=== PATIENT | male | born 1940 | race Caucasian/White ===

== ENCOUNTER 2017-09-11 23:58 | Inpatient (IN) ==
[2017-09-12] MEDS ORDERED: ASPIRIN 325 MG TABLET PO STA (00:46)
[2017-09-12] MEDS ORDERED: NITROGLYCERIN 2% OINT 1 INCH/GM PACK TOP STA (00:46)
[2017-09-12 01:00] LABS: Basophils # 0.1 10*3/uL (0.0-0.2); Basophils % 0.7 % (0.0-0.8); Eosinophils # 0.2 10*3/uL (0.0-0.87); Eosinophils % 2.7 % (0.00-10.9); Hematocrit 43.7 VOL% (42.0-52.0); Hemoglobin 14.3 GM/DL (14.0-18.0); Immature Granulocytes % 0.6 %; Immature Granulocytes Absolute 0.05 #; Lymphocytes # 1.5 10*3/uL (1.4-4.0); Lymphocytes % 16.8 % (21.2-54.2); Mean Corpuscular HGB Conc 32.7 GM/DL (32-36); Mean Corpuscular Hemoglobin 30 PG (27-34); Mean Corpuscular Volume 92.2 FL (87-102); Mean Platelet Volume 9.4 FL (9.6-12.0); Monocytes % 11.2 % (1.7-12.7); Platelet Count 250 T/CUMM (130-400); Red Blood Count 4.74 MC/CUMM (3.8-5.5); Red Cell Distribution Width 13.2 % (9.3-17.3); White Blood Count 8.8 T/CUMM (4-12)
[2017-09-12] MEDS ORDERED: MORPHINE 2 MG/1 ML SYRINGE IV STA (01:02)
[2017-09-12] MEDS ORDERED: ONDANSETRON 4 MG/2 ML VIAL IV STA (01:02)
[2017-09-12] MEDS ORDERED: ASPIRIN 325 MG TABLET ONE (01:19)
[2017-09-12] MEDS ORDERED: ONDANSETRON 4 MG/2 ML VIAL ONE (01:19)
[2017-09-12] MEDS ORDERED: MORPHINE 2 MG/1 ML SYRINGE ONE (01:19)
[2017-09-12] MEDS ORDERED: NITROGLYCERIN 2% OINT 1 INCH/GM PACK TOP ONE (01:19)
[2017-09-12 01:27] LABS: Calcium 9.3 MG/DL (8.5-10.1); Potassium 4.6 MMOL/L (3.5-5.1)
[2017-09-12] MEDS ORDERED: MAGNESIUM SULF RIDER 4 GM in PREMIX 1 EACH IV PRN (02:19)
[2017-09-12] MEDS ORDERED: MAGNESIUM SULF RIDER 2 GM in PREMIX 1 EACH IV PRN (02:19)
[2017-09-12] MEDS ORDERED: MORPHINE 2 MG/1 ML SYRINGE IV PRN (02:19)
[2017-09-12] MEDS ORDERED: ONDANSETRON 4 MG/2 ML VIAL IV PRN (02:19)
[2017-09-12] MEDS ORDERED: ENOXAPARIN 100 MG/ML SYRINGE SUBCUT STA (02:21)
[2017-09-12] MEDS ORDERED: ENOXAPARIN 100 MG/ML SYRINGE SUBCUT ONE (02:37)
[2017-09-12] MEDS ORDERED: GLUCAGON 1 MG VIAL IM PRN ×2 (03:48→13:53)
[2017-09-12] MEDS ORDERED: DEXTROSE 50% 25 GM/50 ML VIAL IV PRN ×2 (03:48→13:53)
[2017-09-12] MEDS ORDERED: SODIUM BICARBONATE 50 MEQ/50 ML SYRINGE IV ONE ×2 (04:54→05:04)
[2017-09-12] MEDS ORDERED: SODIUM BICARB INJ 50 MEQ in SODIUM CHLORIDE 0.45% 1,000 ML IV SCH (04:56)
[2017-09-12] MEDS ORDERED: COLCHICINE 0.6 MG TABLET PO PRN (04:56)
[2017-09-12] MEDS ORDERED: diphenhydrAMINE CAP 25 MG CAPSULE PO ONE (04:56)
[2017-09-12] MEDS ORDERED: DIAZEPAM 5 MG TABLET PO ONE (04:56)
[2017-09-12] MEDS: INSULIN REGULAR 100 UNIT/ML SUBCUT SCH ×4 (09:01→21:02)
[2017-09-12] MEDS: PANTOPRAZOLE 40 MG TABLET PO SCH (09:12)
[2017-09-12] MEDS: ASPIRIN EC 81 MG TABLET PO SCH (09:13)
[2017-09-12] MEDS: hydroCHLOROthiazide 12.5 MG CAPSULE PO SCH (09:18)
[2017-09-12] MEDS: OLMESARTAN 20 MG TABLET PO SCH (09:18)
[2017-09-12] MEDS: OMEGA 3 ACID ETHYL ESTERS 1 GM CAPSULE PO SCH ×2 (09:19→21:02)
[2017-09-12] MEDS ORDERED: VERAPAMIL 5 MG/2 ML VIAL ONE (11:55)
[2017-09-12] MEDS ORDERED: LIDOCAINE 1% 20 ML VIAL ONE (11:55)
[2017-09-12] MEDS ORDERED: HEPARIN/NACL 0.9% 2 UNITS/ML 2,000 ML IV ONE (11:55)
[2017-09-12] MEDS ORDERED: NITROGLYCERIN DRIP 50 MG/250 ML BOTTLE IV ONE (11:55)
[2017-09-12] MEDS ORDERED: MIDAZOLAM 2 MG/2 ML VIAL ONE (11:56)
[2017-09-12] MEDS ORDERED: fentaNYL 100 MCG/2 ML VIAL ONE (11:57)
[2017-09-12] MEDS ORDERED: ENOXAPARIN 60 MG/0.6 ML SYRINGE ONE (12:05)
[2017-09-12] MEDS ORDERED: ZALEPLON 5 MG CAPSULE PO PRN (13:19)
[2017-09-12] MEDS ORDERED: BISACODYL 5 MG TABLET PO PRN (13:19)
[2017-09-12] MEDS ORDERED: ACETAMINOPHEN 325 MG TABLET PO PRN (13:19)
[2017-09-12] MEDS ORDERED: guaiFENesin/DM ER 600-30 MG TABLET PO PRN (13:19)
[2017-09-12] MEDS ORDERED: ENOXAPARIN 40 MG/0.4 ML SYRINGE SUBCUT ONE (13:42)
[2017-09-12] MEDS ORDERED: SODIUM CHLORIDE 0.9% 1,000 ML IV SCH (14:00)
[2017-09-12 15:31] LABS: ABG HCO3 25.3 MMOL/L (20-26); ABG Oxygen Saturation 98.5 % (95-100); ABG PCO2 49.5 MM HG (35-48); ABG TCO2 24.1 MMOL/L (23-27); Allen Test Positive
[2017-09-12] MEDS: CHLORHEXIDINE 4% SOLN 118 ML BOTTLE TOP SCH ×2 (16:00→22:46)
[2017-09-12] MEDS ORDERED: ATORVASTATIN 80 MG TABLET PO SCH (20:00)
[2017-09-12] MEDS ORDERED: METOPROLOL SUCCINATE XL 25 MG TABLET PO SCH (21:00)
[2017-09-12] MEDS: CHLORHEXIDINE 0.12% ORAL RINSE 60 ML BOTTLE SWISH/SPIT SCH (21:02)
[2017-09-13] MEDS: CHLORHEXIDINE 4% SOLN 118 ML BOTTLE TOP SCH (05:07)
[2017-09-13 05:11] LABS: Basophils % 0.6 % (0.0-0.8); Eosinophils # 0.2 10*3/uL (0.0-0.87); Eosinophils % 3.3 % (0.00-10.9); Hematocrit 39.2 VOL% (42.0-52.0); Hemoglobin 13.3 GM/DL (14.0-18.0); Immature Granulocytes % 0.6 %; Immature Granulocytes Absolute 0.04 #; Lymphocytes # 1.5 10*3/uL (1.4-4.0); Lymphocytes % 21.7 % (21.2-54.2); Mean Corpuscular HGB Conc 33.9 GM/DL (32-36); Mean Corpuscular Hemoglobin 31 PG (27-34); Mean Corpuscular Volume 91.4 FL (87-102); Mean Platelet Volume 10.3 FL (9.6-12.0); Monocytes # 0.9 10*3/uL (0.11-0.8); Monocytes % 13.1 % (1.7-12.7); Neutrophils # 4.2 10*3/uL (1.4-7.4); Neutrophils % 60.7 % (38.7-73.9); Platelet Count 227 T/CUMM (130-400); Red Blood Count 4.29 MC/CUMM (3.8-5.5); Red Cell Distribution Width 13.4 % (9.3-17.3); White Blood Count 6.9 T/CUMM (4-12)
[2017-09-13] MEDS ORDERED: PAPAVERINE 60 MG/2 ML VIAL ONE (05:19)
[2017-09-13] MEDS ORDERED: VANCOMYCIN 1,000 MG VIAL ONE (05:20)
[2017-09-13] MEDS ORDERED: FAMOTIDINE 20 MG TABLET PO ONE (05:30)
[2017-09-13] MEDS ORDERED: DIAZEPAM 5 MG TABLET PO ONE (05:30)
[2017-09-13] MEDS ORDERED: CALCIUM CHLORIDE 1,000 MG/10 ML VIAL IV ONE (05:33)
[2017-09-13] MEDS ORDERED: SUFentanil 250 MCG/5 ML AMP ONE (05:33)
[2017-09-13] MEDS ORDERED: MIDAZOLAM 10 MG/2 ML VIAL ONE ×2 (05:33)
[2017-09-13] MEDS ORDERED: ePHEDrine 50 MG/ML AMP ONE (05:34)
[2017-09-13] MEDS ORDERED: VECURONIUM 10 MG VIAL IV ONE (05:34)
[2017-09-13] MEDS ORDERED: TRANEXAMIC ACID 1,000 MG/10 ML VIAL IV ONE (05:46)
[2017-09-13 05:53] LABS: CKMB % 4.7 %
[2017-09-13 05:55] LABS: Troponin I Only 2.1 NG/ML (0.00-0.045)
[2017-09-13] MEDS ORDERED: CEFUROXIME INJ 1,500 MG in SYRINGE 1 EACH IV ONE (06:00)
[2017-09-13 06:08] LABS: Albumin 3.1 G/DL (3.4-5.0); Bilirubin,Total 0.6 MG/DL (0.2-1.0); Calcium 8.5 MG/DL (8.5-10.1); Magnesium 2.1 MG/DL (1.8-2.4); Osmolality,Calculated 285.1 MOS/KG (273-304); Potassium 4.7 MMOL/L (3.5-5.1); Total Protein 5.6 G/DL (6.4-8.3)
[2017-09-13 06:22] LABS: Risk Ratio 4.47; VLDL CHOLESTEROL 23.6 MG/DL
[2017-09-13 07:34] LABS: ABG Base Excess 1.5 MMOL/L (-2.5-2.5); ABG HCO3 25.8 MMOL/L (20-26); ABG PCO2 40.4 MM HG (35-48); ABG PH 7.418 (7.35-7.45); ABG TCO2 22.7 MMOL/L (23-27); Glucose Heart Surgery 100 MG/DL (74-106); Hematocrit Heart Surgery 40.9 PERCENT (42-52); Hemoglobin Heart Surgery 13.3 G/DL (14.0-18.0); Ionized Calcium Arterial 1.17 MMOL/L (1.21-1.46); PCO2 Patient Temp Arterial 40.4 MMHG; PH Patient Temp Arterial 7.418; Patient Temperature 37 CELCIUS; Potassium Heart/CVR 4.3 MMOL/L (3.5-5.1); Sodium Heart/CVR 140 MMOL/L (135-145)
[2017-09-13 07:55] LABS: Apearance,Urine CLEAR (Clear); Bilirubin,Urine Negative (Negative); Blood, Urine Negative (Negative); Glucose,Urine (UA) Negative (Negative); Ketones,Urine Negative (Negative); Mucus,Urine Occasional /LPF (Occasional); Nitrite,Urine Negative (Negative); Protein,Urine Negative; RBC,Urine <1 /HPF (0-4); Urine Color Straw (Yellow); Urine Specific Gravity 1.011 (1.001-1.035); Urine Urobilinogen < 2.0 EU/DL (0.2-1.0); WBC,Urine 1 /HPF (0-6)
[2017-09-13] MEDS ORDERED: PHENYLEPHRINE DRIP 40 MG/250 ML PREMIX IV ONE (08:28)
[2017-09-13] MEDS ORDERED: NITROPRUSSIDE 50 MG/2 ML VIAL ONE (08:28)
[2017-09-13] MEDS ORDERED: ALBUMIN 5% 12.5 GM/250 ML VIAL IV ONE (08:29)
[2017-09-13] MEDS ORDERED: CALCIUM CHLORIDE 1,000 MG/10 ML SYRINGE IV ONE (08:29)
[2017-09-13] MEDS ORDERED: POTASSIUM CHLORIDE RIDER 100 ML IV ONE (08:29)
[2017-09-13 09:51] LABS: Hematocrit Heart Surgery 24.7 PERCENT (42-52); Hemoglobin Heart Surgery 7.9 G/DL (14.0-18.0); PCO2 Patient Temp Venous 30.4 MM HG; PH Patient Temp Venous 7.512; PO2 Patient Temp Venous 41.5 MM HG; Potassium Heart/CVR 4.9 MMOL/L (3.5-5.1); VBG Base Excess 1.8 MEQ/L (0-4); VBG HCO3 25.9 MEQ/L (24-28); VBG Oxygen Saturation 89.3 %; VBG PCO2 35.1 MMHG (41-51); VBG PH 7.466; VBG PO2 50.9 MMHG (17-40)
[2017-09-13 10:21] LABS: Hematocrit Heart Surgery 27.9 PERCENT (42-52); PH Patient Temp Venous 7.507; PO2 Patient Temp Venous 40.2 MM HG; Potassium Heart/CVR 4.4 MMOL/L (3.5-5.1); VBG Base Excess 1.9 MEQ/L (0-4); VBG Oxygen Saturation 87.6 %; VBG PCO2 35.8 MMHG (41-51); VBG PH 7.462; VBG PO2 49.4 MMHG (17-40)
[2017-09-13 10:51] LABS: PCO2 Patient Temp Venous 33.9 MM HG; PH Patient Temp Venous 7.486; PO2 Patient Temp Venous 39.6 MM HG; Potassium Heart/CVR 4.5 MMOL/L (3.5-5.1); VBG Base Excess 2.4 MEQ/L (0-4); VBG HCO3 26.3 MEQ/L (24-28); VBG PCO2 35.5 MMHG (41-51); VBG PH 7.471; VBG PO2 42.4 MMHG (17-40)
[2017-09-13] MEDS ORDERED: THROMBIN TOPICAL (RECOMBINANT) 5,000 UNIT VIAL TOP ONE (11:21)
[2017-09-13 11:32] LABS: ABG Base Excess 1.8 MMOL/L (-2.5-2.5); ABG HCO3 26.1 MMOL/L (20-26); ABG PCO2 33.8 MM HG (35-48); ABG PH 7.478 (7.35-7.45); ABG TCO2 22.8 MMOL/L (23-27); Glucose Heart Surgery 168 MG/DL (74-106); Hematocrit Heart Surgery 29.8 PERCENT (42-52); Hemoglobin Heart Surgery 9.6 G/DL (14.0-18.0); Ionized Calcium Arterial 1.32 MMOL/L (1.21-1.46); PCO2 Patient Temp Arterial 33.8 MMHG; PH Patient Temp Arterial 7.478; Patient Temperature 37 CELCIUS; Potassium Heart/CVR 3.8 MMOL/L (3.5-5.1); Sodium Heart/CVR 135 MMOL/L (135-145)
[2017-09-13] MEDS ORDERED: ALBUMIN 25% 25 GM/100 ML VIAL IV ONE (11:33)
[2017-09-13] MEDS ORDERED: SODIUM BICARBONATE 50 MEQ/50 ML SYRINGE IV ONE (11:33)
[2017-09-13] MEDS ORDERED: methylPREDNISolone SOD SUC 1,000 MG/8 ML VIAL ONE (11:33)
[2017-09-13] MEDS ORDERED: PROTAMINE SULFATE 250 MG/25 ML VIAL IV ONE (11:33)
[2017-09-13] MEDS ORDERED: MAGNESIUM SULFATE 1 GM/2 ML VIAL ONE (11:33)
[2017-09-13] MEDS ORDERED: DEXTROSE 5% KCL 20 MEQ 20 MEQ/1,000 ML BAG IV ONE (11:33)
[2017-09-13] MEDS ORDERED: MANNITOL 12.5 GM/50 ML VIAL IV ONE (11:33)
[2017-09-13] MEDS ORDERED: HEPARIN 10,000 UNIT/10 ML VIAL ONE (11:33)
[2017-09-13] MEDS ORDERED: FUROSEMIDE 20 MG/2 ML VIAL ONE (11:34)
[2017-09-13] MEDS ORDERED: PHENYLEPHRINE 10 MG/1 ML VIAL IV ONE ×2 (11:35→12:56)
[2017-09-13] MEDS ORDERED: VECURONIUM 10 MG VIAL IV PRN ×2 (12:45)
[2017-09-13] MEDS ORDERED: MORPHINE 10 MG/1 ML VIAL IV PRN (12:45)
[2017-09-13] MEDS ORDERED: MIDAZOLAM 2 MG/2 ML VIAL IV PRN (12:45)
[2017-09-13] MEDS ORDERED: CALCIUM CHLORIDE 1,000 MG/10 ML SYRINGE IV PRN (12:45)
[2017-09-13] MEDS ORDERED: MAGNESIUM SULF RIDER 2 GM in PREMIX 1 EACH IV PRN (12:45)
[2017-09-13] MEDS ORDERED: MIDAZOLAM 10 MG/2 ML VIAL IV PRN (12:45)
[2017-09-13] MEDS ORDERED: INSULIN REGULAR 100 UNIT/ML IV PRN (12:45)
[2017-09-13] MEDS ORDERED: LACTATED RINGERS 250 ML IV PRN (12:45)
[2017-09-13] MEDS ORDERED: POTASSIUM CHLORIDE RIDER 10 MEQ in PREMIX 1 EACH IV PRN (12:45)
[2017-09-13] MEDS ORDERED: ONDANSETRON 4 MG/2 ML VIAL IV PRN (12:45)
[2017-09-13] MEDS ORDERED: MORPHINE 2 MG/1 ML SYRINGE IV PRN (12:45)
[2017-09-13] MEDS ORDERED: PHENYLEPHRINE DRIP 40 MG/250 ML PREMIX IV PRN (12:45)
[2017-09-13] MEDS ORDERED: NITROPRUSSIDE 100 MG in DEXTROSE 5% 250 ML IV PRN (12:45)
[2017-09-13] MEDS ORDERED: ACETAMINOPHEN 650 MG SUPP RECTAL PRN (12:45)
[2017-09-13] MEDS ORDERED: MAGNESIUM SULF RIDER 4 GM in PREMIX 1 EACH IV PRN (12:45)
[2017-09-13] MEDS ORDERED: INSULIN REGULAR 100 UNIT/ML IV ONE (12:45)
[2017-09-13] MEDS ORDERED: DEXTROSE 50% 25 GM/50 ML VIAL IV PRN ×2 (12:45)
[2017-09-13 12:55] LABS: ABG Base Excess 1.7 MMOL/L (-2.5-2.5); ABG HCO3 25.9 MMOL/L (20-26); ABG Oxygen Saturation 97.5 % (95-100); ABG PCO2 35.6 MM HG (35-48); ABG PH 7.458 (7.35-7.45); ABG PO2 86.5 MM HG (80-95); ABG TCO2 22.3 MMOL/L (23-27); Glucose Heart Surgery 140 MG/DL (74-106); Hematocrit Heart Surgery 36.3 PERCENT (42-52); Hemoglobin Heart Surgery 11.8 G/DL (14.0-18.0); Potassium Heart/CVR 3.6 MMOL/L (3.5-5.1)
[2017-09-13] MEDS ORDERED: SODIUM CHLORIDE 0.9% 1,000 ML IV ONE (12:55)
[2017-09-13] MEDS ORDERED: NITROGLYCERIN DRIP 50 MG/250 ML BOTTLE IV ONE ×2 (12:55→13:51)
[2017-09-13] MEDS ORDERED: SODIUM CHLORIDE 0.9% 250 ML IV ONE (12:55)
[2017-09-13 12:58] LABS: Basophils # 0.1 10*3/uL (0.0-0.2); Basophils % 0.5 % (0.0-0.8); Eosinophils # 0.1 10*3/uL (0.0-0.87); Eosinophils % 0.9 % (0.00-10.9); Hematocrit 32.7 VOL% (42.0-52.0); Hemoglobin 11.1 GM/DL (14.0-18.0); Immature Granulocytes % 0.6 %; Immature Granulocytes Absolute 0.06 #; Lymphocytes # 0.9 10*3/uL (1.4-4.0); Lymphocytes % 9.5 % (21.2-54.2); Mean Corpuscular HGB Conc 33.9 GM/DL (32-36); Mean Corpuscular Hemoglobin 31 PG (27-34); Mean Corpuscular Volume 90.6 FL (87-102); Mean Platelet Volume 9.5 FL (9.6-12.0); Monocytes # 0.6 10*3/uL (0.11-0.8); Monocytes % 6.2 % (1.7-12.7); Neutrophils # 8.1 10*3/uL (1.4-7.4); Neutrophils % 82.3 % (38.7-73.9); Platelet Count 153 T/CUMM (130-400); Red Blood Count 3.61 MC/CUMM (3.8-5.5); Red Cell Distribution Width 12.9 % (9.3-17.3); White Blood Count 9.9 T/CUMM (4-12)
[2017-09-13] MEDS ORDERED: INSULIN REGULAR DRIP 100 ML IV SCH (13:00)
[2017-09-13] MEDS ORDERED: SODIUM CHLORIDE 0.45% 1,000 ML IV SCH ×2 (13:00)
[2017-09-13] MEDS: LACTATED RINGERS 1,000 ML IV PRN ×3 (13:00→17:20)
[2017-09-13 13:06] LABS: INR 1.1; PT Patient Result 11.9 SECS; Partial Thromboplastin Time 27.7 SECS (0-40)
[2017-09-13 13:22] LABS: Bilirubin,Total 1.1 MG/DL (0.2-1.0); Calcium 9.6 MG/DL (8.5-10.1); Magnesium 2.2 MG/DL (1.8-2.4); Osmolality,Calculated 287.1 MOS/KG (273-304); Potassium 3.7 MMOL/L (3.5-5.1); Total Protein 5.2 G/DL (6.4-8.3)
[2017-09-13 13:27] LABS: Hypochromasia 2+
[2017-09-13] MEDS: POTASSIUM CHLORIDE RIDER 20 MEQ in PREMIX 1 EACH IV PRN ×3 (13:36→21:57)
[2017-09-13 13:38] LABS: CKMB % 8.4 %
[2017-09-13 13:40] LABS: Troponin I Only 6.76 NG/ML (0.00-0.045)
[2017-09-13] MEDS ORDERED: NITROGLYCERIN DRIP 50 MG/250 ML BOTTLE IV SCH (14:20)
[2017-09-13 15:19] LABS: ABG Base Excess -0.4 MMOL/L (-2.5-2.5); ABG HCO3 21.2 MMOL/L (20-26); ABG Oxygen Saturation 98.6 % (95-100); ABG PCO2 26.1 MM HG (35-48); ABG PH 7.527 (7.35-7.45); ABG PO2 203.3 MM HG (80-95); Glucose Heart Surgery 149 MG/DL (74-106); Hemoglobin Heart Surgery 12.2 G/DL (14.0-18.0)
[2017-09-13] MEDS: ALBUMIN 5% 12.5 GM in PREMIX 1 EACH IV PRN ×5 (15:33→22:19)
[2017-09-13] MEDS: KETOROLAC 30 MG/1 ML VIAL IV SCH ×2 (15:35→21:19)
[2017-09-13 16:53] LABS: ABG Base Excess -1.7 MMOL/L (-2.5-2.5); ABG HCO3 20.6 MMOL/L (20-26); ABG Oxygen Saturation 96.3 % (95-100); ABG PCO2 27.3 MM HG (35-48); ABG PH 7.496 (7.35-7.45); ABG PO2 87.9 MM HG (80-95); ABG TCO2 21.5 MMOL/L (23-27); Glucose Heart Surgery 160 MG/DL (74-106); Hemoglobin Heart Surgery 10.4 G/DL (14.0-18.0); Potassium Heart/CVR 3.8 MMOL/L (3.5-5.1)
[2017-09-13 19:12] LABS: ABG Base Excess -2.6 MMOL/L (-2.5-2.5); ABG HCO3 21.2 MMOL/L (20-26); ABG Oxygen Saturation 97.2 % (95-100); ABG PCO2 32.9 MM HG (35-48); ABG PH 7.427 (7.35-7.45); ABG PO2 106.2 MM HG (80-95); ABG TCO2 22.2 MMOL/L (23-27); Glucose Heart Surgery 153 MG/DL (74-106); Hemoglobin Heart Surgery 10.4 G/DL (14.0-18.0); Potassium Heart/CVR 3.8 MMOL/L (3.5-5.1)
[2017-09-13] MEDS ORDERED: FUROSEMIDE 40 MG/4 ML VIAL IV ONE (19:50)
[2017-09-13] MEDS ORDERED: CEFUROXIME INJ 1,500 MG in SYRINGE 1 EACH IV SCH (20:35)
[2017-09-13 20:49] LABS: CKMB % 7.2 %
[2017-09-13 20:51] LABS: Troponin I Only 10.5 NG/ML (0.00-0.045)
[2017-09-13] MEDS ORDERED: CHLORHEXIDINE 0.12% ORAL RINSE 60 ML BOTTLE SWISH/SPIT SCH (21:00)
[2017-09-13 23:58] LABS: ABG Base Excess -1.6 MMOL/L (-2.5-2.5); ABG HCO3 23.1 MMOL/L (20-26); ABG Oxygen Saturation 98.1 % (95-100); ABG PCO2 35.7 MM HG (35-48); ABG PH 7.411 (7.35-7.45); ABG PO2 96.1 MM HG (80-95); Glucose Heart Surgery 113 MG/DL (74-106); Hematocrit Heart Surgery 27.1 PERCENT (42-52); Hemoglobin Heart Surgery 8.7 G/DL (14.0-18.0); Potassium Heart/CVR 4.1 MMOL/L (3.5-5.1)
[2017-09-14] MEDS: POTASSIUM CHLORIDE RIDER 20 MEQ in PREMIX 1 EACH IV PRN ×2 (00:43→06:48)
[2017-09-14 03:05] LABS: Basophils % 0.1 % (0.0-0.8); Hematocrit 28.8 VOL% (42.0-52.0); Hemoglobin 9.8 GM/DL (14.0-18.0); Immature Granulocytes % 0.3 %; Immature Granulocytes Absolute 0.04 #; Lymphocytes # 0.6 10*3/uL (1.4-4.0); Lymphocytes % 5.1 % (21.2-54.2); Mean Corpuscular Hemoglobin 30 PG (27-34); Mean Corpuscular Volume 89.4 FL (87-102); Mean Platelet Volume 9.7 FL (9.6-12.0); Monocytes # 0.5 10*3/uL (0.11-0.8); Monocytes % 4.6 % (1.7-12.7); Neutrophils # 10.7 10*3/uL (1.4-7.4); Neutrophils % 89.9 % (38.7-73.9); Platelet Count 138 T/CUMM (130-400); Red Blood Count 3.22 MC/CUMM (3.8-5.5); Red Cell Distribution Width 13.2 % (9.3-17.3); White Blood Count 11.9 T/CUMM (4-12)
[2017-09-14 03:09] LABS: ABG Base Excess -1.4 MMOL/L (-2.5-2.5); ABG HCO3 23.2 MMOL/L (20-26); ABG Oxygen Saturation 95.9 % (95-100); ABG PCO2 37.5 MM HG (35-48); ABG PH 7.398 (7.35-7.45); ABG PO2 77.1 MM HG (80-95); Glucose Heart Surgery 141 MG/DL (74-106); Potassium Heart/CVR 4.4 MMOL/L (3.5-5.1)
[2017-09-14] MEDS: KETOROLAC 30 MG/1 ML VIAL IV SCH (03:22)
[2017-09-14 03:27] LABS: Band Neutrophils 9 % (0-10); Lymphocytes 3 % (20-55); Metamyelocytes 1 %; Segmented Neutrophils 86 % (50-85); Total Cells Counted 100
[2017-09-14 03:29] LABS: Platelet Estimate Normal
[2017-09-14 03:30] LABS: Hypochromasia Slight
[2017-09-14] MEDS ORDERED: FUROSEMIDE 40 MG/4 ML VIAL IV ONE ×2 (03:30→23:30)
[2017-09-14 03:48] LABS: Albumin 3.6 G/DL (3.4-5.0); Bilirubin,Direct 0.26 MG/DL (0.0-0.20); Bilirubin,Total 0.8 MG/DL (0.2-1.0); Calcium 8.8 MG/DL (8.5-10.1); Magnesium 1.8 MG/DL (1.8-2.4); Osmolality,Calculated 288.1 MOS/KG (273-304); Potassium 4.4 MMOL/L (3.5-5.1); Total Protein 5.4 G/DL (6.4-8.3)
[2017-09-14 04:34] LABS: CKMB % 7.5 %
[2017-09-14 04:38] LABS: Troponin I Only 14.5 NG/ML (0.00-0.045)
[2017-09-14 05:54] LABS: ABG HCO3 22.7 MMOL/L (20-26); ABG Oxygen Saturation 95.9 % (95-100); ABG PCO2 46.2 MM HG (35-48); ABG PH 7.327 (7.35-7.45); ABG PO2 83.5 MM HG (80-95); ABG TCO2 22.1 MMOL/L (23-27); Glucose Heart Surgery 137 MG/DL (74-106); Hematocrit Heart Surgery 31.4 PERCENT (42-52); Hemoglobin Heart Surgery 10.2 G/DL (14.0-18.0); Potassium Heart/CVR 4.2 MMOL/L (3.5-5.1)
[2017-09-14] MEDS ORDERED: COLCHICINE 0.6 MG TABLET PO PRN (06:18)
[2017-09-14 07:09] LABS: ABG Base Excess -2.8 MMOL/L (-2.5-2.5); ABG HCO3 22.4 MMOL/L (20-26); ABG Oxygen Saturation 95.8 % (95-100); ABG PCO2 40.2 MM HG (35-48); ABG PH 7.363 (7.35-7.45); ABG PO2 92.5 MM HG (80-95); ABG TCO2 23.6 MMOL/L (23-27); Glucose Heart Surgery 111 MG/DL (74-106); Hemoglobin Heart Surgery 10.9 G/DL (14.0-18.0); Potassium Heart/CVR 4.7 MMOL/L (3.5-5.1)
[2017-09-14] MEDS ORDERED: MAGNESIUM SULF RIDER 4 GM in PREMIX 1 EACH IV PRN (07:28)
[2017-09-14] MEDS ORDERED: ZALEPLON 5 MG CAPSULE PO PRN (07:28)
[2017-09-14] MEDS ORDERED: GLUCAGON 1 MG VIAL IM PRN ×2 (07:28)
[2017-09-14] MEDS ORDERED: SODIUM CHLOR 0.45% KCL 20 MEQ 20 MEQ/1,000 ML BAG IV SCH (07:28)
[2017-09-14] MEDS ORDERED: DEXTROSE 50% 25 GM/50 ML VIAL IV PRN ×2 (07:28)
[2017-09-14] MEDS ORDERED: MAGNESIUM SULF RIDER 2 GM in PREMIX 1 EACH IV PRN (07:28)
[2017-09-14] MEDS ORDERED: POTASSIUM CHLORIDE 20 MEQ TABLET PO PRN (07:28)
[2017-09-14] MEDS ORDERED: ONDANSETRON 4 MG/2 ML VIAL IV PRN (07:28)
[2017-09-14] MEDS ORDERED: MORPHINE 2 MG/1 ML SYRINGE IV PRN (07:28)
[2017-09-14] MEDS ORDERED: ACETAMINOPHEN 325 MG TABLET PO PRN (07:28)
[2017-09-14] MEDS ORDERED: ALUMINUM/MAGNES/SIMETH MAX STR 30 ML UDCUP PO PRN (07:28)
[2017-09-14] MEDS ORDERED: oxyCODONE/ACETAMINOPHEN 5-325 MG TABLET PO PRN (07:28)
[2017-09-14] MEDS: INSULIN REGULAR 100 UNIT/ML SUBCUT SCH ×3 (07:55→21:39)
[2017-09-14] MEDS: OLMESARTAN 20 MG TABLET PO SCH (07:56)
[2017-09-14] MEDS: OMEGA 3 ACID ETHYL ESTERS 1 GM CAPSULE PO SCH ×3 (07:56→21:39)
[2017-09-14] MEDS: hydroCHLOROthiazide 12.5 MG CAPSULE PO SCH ×2 (07:56→09:30)
[2017-09-14] MEDS: CHLORHEXIDINE 0.12% ORAL RINSE 60 ML BOTTLE SWISH/SPIT SCH ×3 (07:56→21:40)
[2017-09-14] MEDS: CHLORHEXIDINE 4% SOLN 118 ML BOTTLE TOP SCH (07:56)
[2017-09-14] MEDS: ASPIRIN EC 81 MG TABLET PO SCH (07:56)
[2017-09-14] MEDS: PANTOPRAZOLE 40 MG TABLET PO SCH ×2 (07:56→09:31)
[2017-09-14] MEDS ORDERED: OLMESARTAN 20 MG TABLET PO SCH (09:00)
[2017-09-14] MEDS: FERROUS SULFATE 325 MG TABLET PO SCH (09:30)
[2017-09-14] MEDS: DOCUSATE SODIUM 100 MG CAPSULE PO SCH (09:31)
[2017-09-14] MEDS: ASPIRIN EC 325 MG TABLET PO SCH (09:31)
[2017-09-14] MEDS: CEFUROXIME INJ 1,500 MG in SYRINGE 1 EACH IV SCH ×2 (10:27→21:40)
[2017-09-14] MEDS ORDERED: AMIODARONE INJ 150 MG in DEXTROSE 5% 100 ML IV ONE (12:23)
[2017-09-14] MEDS ORDERED: AMIODARONE 150 MG/3 ML VIAL ONE (12:28)
[2017-09-14] MEDS ORDERED: DILTIAZEM 50 MG/10 ML VIAL IV ONE (12:29)
[2017-09-14] MEDS: DILTIAZEM INJ 100 MG in SODIUM CHLORIDE 0.9% 100 ML IV SCH (12:30)
[2017-09-14] MEDS ORDERED: AMIODARONE INJ 450 MG in DEXTROSE 5% 241 ML IV SCH (12:30)
[2017-09-14] MEDS ORDERED: DILTIAZEM 100 MG VIAL.ADD IV ONE (12:32)
[2017-09-14] MEDS ORDERED: SODIUM CHLORIDE 0.9% 100 ML IV ONE (12:32)
[2017-09-14 13:29] LABS: CKMB % 6.8 %; Troponin I Only 11.3 NG/ML (0.00-0.045)
[2017-09-14] MEDS ORDERED: METOPROLOL TARTRATE 5 MG/5 ML VIAL IV ONE (16:15)
[2017-09-14] MEDS: METOPROLOL TARTRATE 25 MG TABLET PO SCH ×2 (16:39→21:39)
[2017-09-14] MEDS ORDERED: METOPROLOL SUCCINATE XL 25 MG TABLET PO SCH (21:00)
[2017-09-14] MEDS: AMIODARONE INJ 450 MG in DEXTROSE 5% 241 ML IV SCH (21:38)
[2017-09-14] MEDS: ATORVASTATIN 40 MG TABLET PO SCH (21:39)
[2017-09-15] MEDS ORDERED: FUROSEMIDE INJ 100 MG in SODIUM CHLORIDE 0.9% 90 ML IV SCH
[2017-09-15] MEDS: INSULIN REGULAR 100 UNIT/ML SUBCUT SCH ×6 (00:26→21:54)
[2017-09-15 04:34] LABS: Basophils % 0.1 % (0.0-0.8); Eosinophils % 0.1 % (0.00-10.9); Hematocrit 32.2 VOL% (42.0-52.0); Hemoglobin 10.6 GM/DL (14.0-18.0); Immature Granulocytes % 0.9 %; Immature Granulocytes Absolute 0.16 #; Lymphocytes # 1.6 10*3/uL (1.4-4.0); Lymphocytes % 8.6 % (21.2-54.2); Mean Corpuscular HGB Conc 32.9 GM/DL (32-36); Mean Corpuscular Hemoglobin 30 PG (27-34); Mean Corpuscular Volume 91.2 FL (87-102); Mean Platelet Volume 9.8 FL (9.6-12.0); Monocytes # 2.2 10*3/uL (0.11-0.8); Monocytes % 11.5 % (1.7-12.7); Neutrophils # 14.8 10*3/uL (1.4-7.4); Neutrophils % 78.8 % (38.7-73.9); Platelet Count 158 T/CUMM (130-400); Red Blood Count 3.53 MC/CUMM (3.8-5.5); Red Cell Distribution Width 14.4 % (9.3-17.3); White Blood Count 18.7 T/CUMM (4-12)
[2017-09-15] MEDS: DILTIAZEM INJ 100 MG in SODIUM CHLORIDE 0.9% 100 ML IV SCH ×2 (04:56→16:19)
[2017-09-15 05:06] LABS: Albumin 3.5 G/DL (3.4-5.0); Bilirubin,Direct 0.13 MG/DL (0.0-0.20); Bilirubin,Indirect 0.5 MG/DL (0.0-1.0); Bilirubin,Total 0.6 MG/DL (0.2-1.0); CKMB % 5.2 %; Calcium 8.6 MG/DL (8.5-10.1); Magnesium 1.9 MG/DL (1.8-2.4); Osmolality,Calculated 290.5 MOS/KG (273-304); Total Protein 5.9 G/DL (6.4-8.3)
[2017-09-15 05:09] LABS: Troponin I Only 14.3 NG/ML (0.00-0.045)
[2017-09-15] MEDS ORDERED: FUROSEMIDE 40 MG/4 ML VIAL IV ONE (06:00)
[2017-09-15] MEDS: PANTOPRAZOLE 40 MG TABLET PO SCH (10:25)
[2017-09-15] MEDS: METOPROLOL TARTRATE 25 MG TABLET PO SCH ×2 (10:25→14:26)
[2017-09-15] MEDS: OMEGA 3 ACID ETHYL ESTERS 1 GM CAPSULE PO SCH ×2 (10:25→21:10)
[2017-09-15] MEDS: hydroCHLOROthiazide 12.5 MG CAPSULE PO SCH (10:25)
[2017-09-15] MEDS: DOCUSATE SODIUM 100 MG CAPSULE PO SCH (10:26)
[2017-09-15] MEDS: ASPIRIN EC 325 MG TABLET PO SCH (10:26)
[2017-09-15] MEDS: FERROUS SULFATE 325 MG TABLET PO SCH (10:26)
[2017-09-15] MEDS: CHLORHEXIDINE 0.12% ORAL RINSE 60 ML BOTTLE SWISH/SPIT SCH ×2 (10:32→21:10)
[2017-09-15] MEDS: MAGNESIUM HYDROXIDE SUSP 30 ML UDCUP PO PRN (12:20)
[2017-09-15] MEDS: AMIODARONE INJ 450 MG in DEXTROSE 5% 241 ML IV SCH (12:46)
[2017-09-15] MEDS: METOPROLOL TARTRATE 50 MG TABLET PO SCH ×2 (17:10→21:10)
[2017-09-16] MEDS: AMIODARONE INJ 450 MG in DEXTROSE 5% 241 ML IV SCH ×2 (03:37→18:47)
[2017-09-16 06:51] LABS: Basophils % 0.1 % (0.0-0.8); Eosinophils # 0.1 10*3/uL (0.0-0.87); Eosinophils % 0.9 % (0.00-10.9); Hematocrit 29.6 VOL% (42.0-52.0); Hemoglobin 10.2 GM/DL (14.0-18.0); Immature Granulocytes % 0.7 %; Immature Granulocytes Absolute 0.09 #; Lymphocytes # 1.6 10*3/uL (1.4-4.0); Lymphocytes % 12.1 % (21.2-54.2); Mean Corpuscular HGB Conc 34.5 GM/DL (32-36); Mean Corpuscular Hemoglobin 31 PG (27-34); Mean Corpuscular Volume 88.6 FL (87-102); Mean Platelet Volume 10.9 FL (9.6-12.0); Monocytes # 1.5 10*3/uL (0.11-0.8); Monocytes % 11.3 % (1.7-12.7); Neutrophils # 10.2 10*3/uL (1.4-7.4); Neutrophils % 74.9 % (38.7-73.9); Platelet Count 157 T/CUMM (130-400); Red Blood Count 3.34 MC/CUMM (3.8-5.5); Red Cell Distribution Width 14.3 % (9.3-17.3); White Blood Count 13.6 T/CUMM (4-12)
[2017-09-16 07:16] LABS: Calcium 8.3 MG/DL (8.5-10.1); Magnesium 2.1 MG/DL (1.8-2.4); Osmolality,Calculated 290.5 MOS/KG (273-304)
[2017-09-16 07:22] LABS: Albumin 3.1 G/DL (3.4-5.0); Bilirubin,Direct 0.17 MG/DL (0.0-0.20); Bilirubin,Indirect 0.7 MG/DL (0.0-1.0); Bilirubin,Total 0.9 MG/DL (0.2-1.0); CKMB % 2.1 %; Calcium 8.3 MG/DL (8.5-10.1); Magnesium 2.1 MG/DL (1.8-2.4); Osmolality,Calculated 292.4 MOS/KG (273-304); Total Protein 5.5 G/DL (6.4-8.3)
[2017-09-16 07:23] LABS: Troponin I Only 8.03 NG/ML (0.00-0.045)
[2017-09-16] MEDS: hydroCHLOROthiazide 12.5 MG CAPSULE PO SCH (10:06)
[2017-09-16] MEDS: OMEGA 3 ACID ETHYL ESTERS 1 GM CAPSULE PO SCH ×2 (10:06→21:31)
[2017-09-16] MEDS: PANTOPRAZOLE 40 MG TABLET PO SCH (10:06)
[2017-09-16] MEDS: CHLORHEXIDINE 0.12% ORAL RINSE 60 ML BOTTLE SWISH/SPIT SCH ×2 (10:07→21:31)
[2017-09-16] MEDS: DOCUSATE SODIUM 100 MG CAPSULE PO SCH (10:07)
[2017-09-16] MEDS: FERROUS SULFATE 325 MG TABLET PO SCH (10:07)
[2017-09-16] MEDS: INSULIN REGULAR 100 UNIT/ML SUBCUT SCH ×4 (10:07→21:31)
[2017-09-16] MEDS: ASPIRIN EC 325 MG TABLET PO SCH (10:07)
[2017-09-16] MEDS: METOPROLOL TARTRATE 50 MG TABLET PO SCH ×4 (10:07→21:31)
[2017-09-16] MEDS: DILTIAZEM INJ 100 MG in SODIUM CHLORIDE 0.9% 100 ML IV SCH (13:41)
[2017-09-16] MEDS: AMIODARONE 200 MG TABLET PO SCH (21:31)
[2017-09-16] MEDS: ATORVASTATIN 40 MG TABLET PO SCH (21:31)
[2017-09-17] MEDS: AMIODARONE 200 MG TABLET PO SCH ×2 (09:48→21:07)
[2017-09-17] MEDS: hydroCHLOROthiazide 12.5 MG CAPSULE PO SCH (09:48)
[2017-09-17] MEDS: INSULIN REGULAR 100 UNIT/ML SUBCUT SCH ×4 (09:48→23:05)
[2017-09-17] MEDS: OMEGA 3 ACID ETHYL ESTERS 1 GM CAPSULE PO SCH ×2 (09:49→21:07)
[2017-09-17] MEDS: METOPROLOL TARTRATE 50 MG TABLET PO SCH ×4 (09:49→21:07)
[2017-09-17] MEDS: DOCUSATE SODIUM 100 MG CAPSULE PO SCH (09:49)
[2017-09-17] MEDS: FERROUS SULFATE 325 MG TABLET PO SCH (09:49)
[2017-09-17] MEDS: PANTOPRAZOLE 40 MG TABLET PO SCH (09:49)
[2017-09-17] MEDS: ASPIRIN EC 325 MG TABLET PO SCH (09:49)
[2017-09-17] MEDS: CHLORHEXIDINE 0.12% ORAL RINSE 60 ML BOTTLE SWISH/SPIT SCH ×2 (09:50→21:07)
[2017-09-17] MEDS: AMIODARONE INJ 450 MG in DEXTROSE 5% 241 ML IV SCH (12:39)
[2017-09-17] MEDS: DILTIAZEM INJ 100 MG in SODIUM CHLORIDE 0.9% 100 ML IV SCH (12:40)
[2017-09-17] MEDS: MAGNESIUM HYDROXIDE SUSP 30 ML UDCUP PO PRN (13:41)
[2017-09-18 05:35] LABS: Basophils % 0.3 % (0.0-0.8); Eosinophils # 0.3 10*3/uL (0.0-0.87); Eosinophils % 3.4 % (0.00-10.9); Hematocrit 31.5 VOL% (42.0-52.0); Hemoglobin 10.8 GM/DL (14.0-18.0); Immature Granulocytes % 0.5 %; Immature Granulocytes Absolute 0.05 #; Lymphocytes # 1.5 10*3/uL (1.4-4.0); Mean Corpuscular HGB Conc 34.3 GM/DL (32-36); Mean Corpuscular Hemoglobin 30 PG (27-34); Mean Corpuscular Volume 88.7 FL (87-102); Mean Platelet Volume 10.5 FL (9.6-12.0); Monocytes # 1.5 10*3/uL (0.11-0.8); Monocytes % 15.4 % (1.7-12.7); Neutrophils # 6.4 10*3/uL (1.4-7.4); Neutrophils % 65.4 % (38.7-73.9); Platelet Count 197 T/CUMM (130-400); Red Blood Count 3.55 MC/CUMM (3.8-5.5); Red Cell Distribution Width 13.4 % (9.3-17.3); White Blood Count 9.8 T/CUMM (4-12)
[2017-09-18 06:07] LABS: Albumin 2.7 G/DL (3.4-5.0); Bilirubin,Direct 0.18 MG/DL (0.0-0.20); Bilirubin,Indirect 0.8 MG/DL (0.0-1.0); CKMB % 6.5 %; Calcium 8.5 MG/DL (8.5-10.1); Magnesium 2.4 MG/DL (1.8-2.4); Osmolality,Calculated 287.3 MOS/KG (273-304); Potassium 4.2 MMOL/L (3.5-5.1); Total Protein 5.5 G/DL (6.4-8.3)
[2017-09-18 06:15] LABS: Troponin I Only 10.5 NG/ML (0.00-0.045)
[2017-09-18] MEDS: ASPIRIN EC 325 MG TABLET PO SCH (09:03)
[2017-09-18] MEDS: FERROUS SULFATE 325 MG TABLET PO SCH (09:03)
[2017-09-18] MEDS: AMIODARONE 200 MG TABLET PO SCH (09:03)
[2017-09-18] MEDS: hydroCHLOROthiazide 12.5 MG CAPSULE PO SCH (09:03)
[2017-09-18] MEDS: PANTOPRAZOLE 40 MG TABLET PO SCH (09:03)
[2017-09-18] MEDS: METOPROLOL TARTRATE 50 MG TABLET PO SCH (09:03)
[2017-09-18] MEDS: OMEGA 3 ACID ETHYL ESTERS 1 GM CAPSULE PO SCH (09:03)
[2017-09-18] MEDS: DOCUSATE SODIUM 100 MG CAPSULE PO SCH (09:03)
[2017-09-18] MEDS: CHLORHEXIDINE 0.12% ORAL RINSE 60 ML BOTTLE SWISH/SPIT SCH (09:06)
[2017-09-18] MEDS: INSULIN REGULAR 100 UNIT/ML SUBCUT SCH (09:07)
[2017-09-18] MEDS ORDERED: METOPROLOL SUCCINATE XL 50 MG TABLET PO SCH (10:00)
[2017-09-18 10:52] VITALS: BP 118/62
== END 2017-09-18 12:07 | disposition home or self-care (01) | DRG 234 ==
LOC: N.ED 23:58 → N.EDINP 09-12 02:19 → SUATTDRO 09-12 02:19 → N.ICU 09-12 06:25 → N.CVR 09-13 07:01 → N.ICU 09-14 14:29 → N.TELES 09-15 16:14
PROVIDERS: ADMIT Internal Medicine Cardiovascular Disease; ATTEND Internal Medicine Cardiovascular Disease

== ENCOUNTER 2018-06-24 04:52 | Inpatient (IN) ==
[2018-06-24] MEDS ORDERED: DILTIAZEM 50 MG/10 ML VIAL IV STA (05:10)
[2018-06-24] MEDS ORDERED: DILTIAZEM 25 MG/5 ML VIAL IV ONE (05:17)
[2018-06-24 05:19] LABS: Basophils # 0.1 10*3/uL (0.0-0.2); Basophils % 0.7 % (0.0-0.8); Eosinophils # 0.4 10*3/uL (0.0-0.87); Hematocrit 44.9 VOL% (42.0-52.0); Immature Granulocytes % 0.2 %; Immature Granulocytes Absolute 0.02 #; Lymphocytes # 2.2 10*3/uL (1.4-4.0); Lymphocytes % 22.3 % (21.2-54.2); Mean Corpuscular HGB Conc 33.4 GM/DL (32-36); Mean Corpuscular Hemoglobin 31 PG (27-34); Mean Corpuscular Volume 93.7 FL (87-102); Mean Platelet Volume 10.3 FL (9.6-12.0); Monocytes # 1.2 10*3/uL (0.11-0.8); Monocytes % 11.9 % (1.7-12.7); Neutrophils # 5.9 10*3/uL (1.4-7.4); Neutrophils % 60.9 % (38.7-73.9); Platelet Count 208 T/CUMM (130-400); Red Blood Count 4.79 MC/CUMM (3.8-5.5); Red Cell Distribution Width 14.2 % (9.3-17.3); White Blood Count 9.7 T/CUMM (4-12)
[2018-06-24] MEDS: dilTIAZem Drip 125 MG/125 ML PREMIX IV SCH ×2 (05:23→16:53)
[2018-06-24 05:41] LABS: Albumin 3.4 G/DL (3.4-5.0); Bilirubin,Total 0.5 MG/DL (0.2-1.0); Calcium 9.2 MG/DL (8.5-10.1); Total Protein 7.1 G/DL (6.4-8.3)
[2018-06-24] MEDS ORDERED: COLCHICINE 0.6 MG TABLET PO PRN (12:53)
[2018-06-24] MEDS: INSULIN LISPRO 100 UNIT/ML SUBCUT SCH ×2 (17:04→21:02)
[2018-06-24] MEDS: OMEGA 3 ACID ETHYL ESTERS 1 GM CAPSULE PO SCH (20:57)
[2018-06-24] MEDS: ALLOPURINOL 100 MG TABLET PO SCH (20:57)
[2018-06-24] MEDS: APIXABAN 5 MG TABLET PO SCH (20:57)
[2018-06-24] MEDS: AMIODARONE 200 MG TABLET PO SCH (20:57)
[2018-06-24] MEDS ORDERED: METOPROLOL SUCCINATE XL 25 MG TABLET PO SCH (21:00)
[2018-06-24] MEDS ORDERED: AMIODARONE 200 MG TABLET PO SCH (21:00)
[2018-06-25] MEDS: dilTIAZem Drip 125 MG/125 ML PREMIX IV SCH (04:44)
[2018-06-25 05:30] LABS: Basophils # 0.1 10*3/uL (0.0-0.2); Basophils % 0.9 % (0.0-0.8); Eosinophils # 0.5 10*3/uL (0.0-0.87); Eosinophils % 5.9 % (0.00-10.9); Hemoglobin 12.7 GM/DL (14.0-18.0); Immature Granulocytes % 0.4 %; Immature Granulocytes Absolute 0.03 #; Lymphocytes # 1.9 10*3/uL (1.4-4.0); Lymphocytes % 24.2 % (21.2-54.2); Mean Corpuscular HGB Conc 32.6 GM/DL (32-36); Mean Corpuscular Hemoglobin 31 PG (27-34); Mean Corpuscular Volume 94.7 FL (87-102); Mean Platelet Volume 10.2 FL (9.6-12.0); Monocytes % 12.8 % (1.7-12.7); Neutrophils # 4.4 10*3/uL (1.4-7.4); Neutrophils % 55.8 % (38.7-73.9); Platelet Count 178 T/CUMM (130-400); Red Blood Count 4.12 MC/CUMM (3.8-5.5); Red Cell Distribution Width 14.2 % (9.3-17.3); White Blood Count 7.8 T/CUMM (4-12)
[2018-06-25 06:15] LABS: Albumin 2.7 G/DL (3.4-5.0); Bilirubin,Total 0.4 MG/DL (0.2-1.0); Calcium 8.5 MG/DL (8.5-10.1); Free T4 (Free Thyroxine) 1.01 NG/DL (0.76-1.46); Osmolality,Calculated 292.4 MOS/KG (273-304); Risk Ratio 4.34; Thyroid Stimulating Hormone 2.77 uIU/ml (0.358-3.74); Total Protein 6.2 G/DL (6.4-8.3)
[2018-06-25] MEDS ORDERED: sitaGLIPtin 25 MG TABLET PO SCH (08:00)
[2018-06-25] MEDS: INSULIN LISPRO 100 UNIT/ML SUBCUT SCH ×2 (08:56→12:53)
[2018-06-25] MEDS: AMIODARONE 200 MG TABLET PO SCH (08:59)
[2018-06-25] MEDS ORDERED: LISINOPRIL 2.5 MG TABLET PO SCH (09:00)
[2018-06-25] MEDS: ALLOPURINOL 100 MG TABLET PO SCH (09:00)
[2018-06-25] MEDS: OMEGA 3 ACID ETHYL ESTERS 1 GM CAPSULE PO SCH (09:00)
[2018-06-25] MEDS ORDERED: ASPIRIN EC 81 MG TABLET PO SCH (09:00)
[2018-06-25] MEDS ORDERED: EZETIMIBE 10 MG TABLET PO SCH (09:00)
[2018-06-25] MEDS: APIXABAN 5 MG TABLET PO SCH (09:01)
[2018-06-25] MEDS ORDERED: MAGNESIUM SULF RIDER 2 GM in PREMIX 1 EACH IV ONE (11:04)
[2018-06-25] MEDS ORDERED: ASCORBIC ACID 500 MG TABLET PO SCH (11:30)
[2018-06-25 14:23] VITALS: BP 144/71
[2018-06-26] MEDS ORDERED: OLMESARTAN 20 MG TABLET PO SCH (09:00)
[2018-06-26] MEDS ORDERED: ATORVASTATIN 80 MG TABLET PO SCH (20:00)
[2018-06-26] MEDS ORDERED: ROSUVASTATIN 10 MG TABLET PO SCH (21:00)
== END 2018-06-25 16:26 | disposition home or self-care (01) | DRG 310 ==
LOC: N.ED 04:52 → N.EDINP 05:53 → N.TELEN 06:29
PROVIDERS: ADMIT Family Medicine; ATTEND Family Medicine

== ENCOUNTER 2021-08-20 12:44 | Inpatient (IN) ==
[2021-08-20 14:07] LABS: Basophils % 0.3 % (0.0-0.8); Eosinophils # 0.1 10*3/uL (0.0-0.87); Eosinophils % 1.7 % (0.00-10.9); Hematocrit 39.8 VOL% (42.0-52.0); Hemoglobin 12.8 GM/DL (14.0-18.0); Immature Granulocytes % 0.3 %; Immature Granulocytes Absolute 0.02 #; Lymphocytes % 16.9 % (21.2-54.2); Mean Corpuscular HGB Conc 32.2 GM/DL (32-36); Mean Corpuscular Volume 97.3 FL (87-102); Mean Platelet Volume 9.8 FL (9.6-12.0); Monocytes % 7.2 % (1.7-12.7); Neutrophils % 73.6 % (38.7-73.9); Platelet Count 180 T/CUMM (130-400); Red Blood Count 4.09 MC/CUMM (3.8-5.5); White Blood Count 5.7 T/CUMM (4-12)
[2021-08-20 14:28] LABS: Calcium 8.6 MG/DL (8.5-10.1); Osmolality,Calculated 287.3 MOS/KG (273-304); Potassium 4.8 MMOL/L (3.5-5.1)
[2021-08-20] MEDS ORDERED: ONDANSETRON 4 MG/2 ML VIAL IV PRN (14:44)
[2021-08-20] MEDS ORDERED: ACETAMINOPHEN 325 MG TABLET PO PRN (14:44)
[2021-08-20] MEDS: APIXABAN 5 MG TABLET PO SCH (23:02)
[2021-08-20] MEDS: METOPROLOL SUCCINATE XL 25 MG TABLET PO SCH (23:02)
[2021-08-20] MEDS: DOCUSATE SODIUM 100 MG CAPSULE PO SCH (23:02)
[2021-08-20] MEDS: RANOLAZINE 500 MG TABLET PO SCH (23:03)
[2021-08-20] MEDS: glipiZIDE 5 MG TABLET PO SCH (23:03)
[2021-08-21] MEDS ORDERED: NITROGLYCERIN SL 0.4 MG TABLET SL PRN (03:43)
[2021-08-21] MEDS: sitaGLIPtin 25 MG TABLET PO SCH (09:04)
[2021-08-21] MEDS: DOCUSATE SODIUM 100 MG CAPSULE PO SCH ×2 (09:04→21:09)
[2021-08-21] MEDS: allopurinoL 100 MG TABLET PO SCH (09:05)
[2021-08-21] MEDS: APIXABAN 5 MG TABLET PO SCH ×2 (09:05→21:09)
[2021-08-21] MEDS: EZETIMIBE 10 MG TABLET PO SCH (09:05)
[2021-08-21] MEDS: RANOLAZINE 500 MG TABLET PO SCH ×2 (09:05→21:09)
[2021-08-21] MEDS: lisinopriL 20 MG TABLET PO SCH (09:05)
[2021-08-21] MEDS: PANTOPRAZOLE 40 MG TABLET PO SCH (09:05)
[2021-08-21] MEDS: CLOPIDOGREL 75 MG TABLET PO SCH (09:05)
[2021-08-21] MEDS: METOPROLOL SUCCINATE XL 25 MG TABLET PO SCH ×2 (09:05→21:10)
[2021-08-21] MEDS: ISOSORBIDE MONONITRATE 60 MG TABLET PO SCH (09:05)
[2021-08-21] MEDS ORDERED: ROSUVASTATIN 10 MG TABLET PO SCH (21:00)
[2021-08-21] MEDS: glipiZIDE 5 MG TABLET PO SCH (21:10)
[2021-08-22 06:39] LABS: Basophils % 0.4 % (0.0-0.8); Eosinophils # 0.3 10*3/uL (0.0-0.87); Eosinophils % 3.3 % (0.00-10.9); Hematocrit 37.3 VOL% (42.0-52.0); Hemoglobin 11.9 GM/DL (14.0-18.0); Immature Granulocytes % 0.5 %; Immature Granulocytes Absolute 0.04 #; Lymphocytes # 2.2 10*3/uL (1.4-4.0); Lymphocytes % 28.3 % (21.2-54.2); Mean Corpuscular HGB Conc 31.9 GM/DL (32-36); Mean Corpuscular Volume 97.1 FL (87-102); Mean Platelet Volume 10.4 FL (9.6-12.0); Monocytes % 11.7 % (1.7-12.7); Neutrophils % 55.8 % (38.7-73.9); Platelet Count 182 T/CUMM (130-400); Red Blood Count 3.84 MC/CUMM (3.8-5.5); Red Cell Distribution Width 14.1 % (9.3-17.3); White Blood Count 7.6 T/CUMM (4-12)
[2021-08-22 07:03] LABS: Calcium 8.4 MG/DL (8.5-10.1); Osmolality,Calculated 279.4 MOS/KG (273-304); Potassium 4.5 MMOL/L (3.5-5.1)
[2021-08-22] MEDS: ISOSORBIDE MONONITRATE 60 MG TABLET PO SCH (09:23)
[2021-08-22] MEDS: EZETIMIBE 10 MG TABLET PO SCH (09:23)
[2021-08-22] MEDS: METOPROLOL SUCCINATE XL 25 MG TABLET PO SCH ×2 (09:23→21:15)
[2021-08-22] MEDS: RANOLAZINE 500 MG TABLET PO SCH ×2 (09:23→21:14)
[2021-08-22] MEDS: allopurinoL 100 MG TABLET PO SCH (09:23)
[2021-08-22] MEDS: DOCUSATE SODIUM 100 MG CAPSULE PO SCH ×2 (09:23→21:14)
[2021-08-22] MEDS: APIXABAN 5 MG TABLET PO SCH ×2 (09:24→21:15)
[2021-08-22] MEDS: CLOPIDOGREL 75 MG TABLET PO SCH (09:24)
[2021-08-22] MEDS: lisinopriL 20 MG TABLET PO SCH (09:24)
[2021-08-22] MEDS: sitaGLIPtin 25 MG TABLET PO SCH (09:24)
[2021-08-22] MEDS: PANTOPRAZOLE 40 MG TABLET PO SCH (09:24)
[2021-08-23] MEDS: PANTOPRAZOLE 40 MG TABLET PO SCH (09:54)
[2021-08-23] MEDS: sitaGLIPtin 25 MG TABLET PO SCH (09:54)
[2021-08-23] MEDS: APIXABAN 5 MG TABLET PO SCH ×2 (09:54→21:36)
[2021-08-23] MEDS: RANOLAZINE 500 MG TABLET PO SCH ×2 (09:54→21:35)
[2021-08-23] MEDS: lisinopriL 20 MG TABLET PO SCH (09:54)
[2021-08-23] MEDS: CLOPIDOGREL 75 MG TABLET PO SCH (09:55)
[2021-08-23] MEDS: DOCUSATE SODIUM 100 MG CAPSULE PO SCH ×2 (09:55→21:36)
[2021-08-23] MEDS: EZETIMIBE 10 MG TABLET PO SCH (09:55)
[2021-08-23] MEDS: allopurinoL 100 MG TABLET PO SCH (09:55)
[2021-08-23] MEDS: ISOSORBIDE MONONITRATE 60 MG TABLET PO SCH (09:55)
[2021-08-23] MEDS: METOPROLOL SUCCINATE XL 25 MG TABLET PO SCH ×2 (09:55→21:36)
[2021-08-24 08:37] VITALS: BP 126/64
[2021-08-24] MEDS: sitaGLIPtin 25 MG TABLET PO SCH (08:54)
[2021-08-24] MEDS: RANOLAZINE 500 MG TABLET PO SCH (08:55)
[2021-08-24] MEDS: lisinopriL 20 MG TABLET PO SCH (08:55)
[2021-08-24] MEDS: DOCUSATE SODIUM 100 MG CAPSULE PO SCH (08:55)
[2021-08-24] MEDS: allopurinoL 100 MG TABLET PO SCH (08:55)
[2021-08-24] MEDS: PANTOPRAZOLE 40 MG TABLET PO SCH (08:55)
[2021-08-24] MEDS: CLOPIDOGREL 75 MG TABLET PO SCH (08:55)
[2021-08-24] MEDS: EZETIMIBE 10 MG TABLET PO SCH (08:55)
[2021-08-24] MEDS: APIXABAN 5 MG TABLET PO SCH (08:55)
[2021-08-24] MEDS: METOPROLOL SUCCINATE XL 25 MG TABLET PO SCH (08:55)
[2021-08-24] MEDS: ISOSORBIDE MONONITRATE 60 MG TABLET PO SCH (08:55)
== END 2021-08-24 11:55 | disposition home or self-care (01) | DRG 312 ==
LOC: EDBD → EDUNIT# → N.ED 12:44 → N.EDINP 12:44 → N.TELES 08-21 09:36
PROVIDERS: ADMIT Family Medicine; ATTEND Family Medicine

== ENCOUNTER 2022-03-03 07:17 | Inpatient (IN) ==
[2022-03-03 08:16] LABS: RBC,Urine 17947 /HPF (0-4)
[2022-03-03 08:17] LABS: Bilirubin,Urine Large mg/dL (Negative); Blood, Urine Large mg/dL (Negative); Glucose,Urine (UA) 100 mg/dL (Negative); Ketones,Urine 40 mg/dL (Negative); Nitrite,Urine Negative (Negative); Protein,Urine >=300 mg/dL (Negative); Urine Appearance Turbid (Clear); Urine Color Red (Yellow)
[2022-03-03 08:31] LABS: Basophils # 0.1 10*3/uL (0.0-0.2); Basophils % 0.7 % (0.0-0.8); Eosinophils # 0.2 10*3/uL (0.0-0.87); Eosinophils % 2.9 % (0.00-10.9); Hematocrit 42.5 VOL% (42.0-52.0); Hemoglobin 13.9 GM/DL (14.0-18.0); Immature Granulocytes % 0.3 %; Immature Granulocytes Absolute 0.02 #; Lymphocytes # 1.3 10*3/uL (1.4-4.0); Lymphocytes % 18.5 % (21.2-54.2); Mean Corpuscular HGB Conc 32.7 GM/DL (32-36); Mean Corpuscular Volume 95.7 FL (87-102); Mean Platelet Volume 9.8 FL (9.6-12.0); Monocytes # 0.8 10*3/uL (0.11-0.8); Monocytes % 10.7 % (1.7-12.7); Neutrophils % 66.9 % (38.7-73.9); Platelet Count 198 T/CUMM (130-400); Red Blood Count 4.44 MC/CUMM (3.8-5.5); Red Cell Distribution Width 14.3 % (9.3-17.3)
[2022-03-03 08:41] LABS: PT Patient Result 10.9 SECS (10.1-12.1); Partial Thromboplastin Time 30.3 SECS (23.7-32.9)
[2022-03-03 08:51] LABS: Albumin 3.7 G/DL (3.4-5.0); Bilirubin,Total 0.6 MG/DL (0.20-1.00); Potassium 4.6 MMOL/L (3.5-5.1)
[2022-03-03] MEDS ORDERED: cefTRIAXone 1,000 MG in SODIUM CHLORIDE 0.9% 100 ML IV STA (09:05)
[2022-03-03] MEDS ORDERED: ONDANSETRON 4 MG/2 ML VIAL IV PRN (09:46)
[2022-03-03] MEDS ORDERED: ACETAMINOPHEN 325 MG TABLET PO PRN (09:46)
[2022-03-03] MEDS ORDERED: SODIUM CHLORIDE 0.9% 1,000 ML IV STA (09:46)
[2022-03-03] MEDS ORDERED: NITROGLYCERIN SL 0.4 MG TABLET SL PRN (10:17)
[2022-03-03] MEDS: PANTOPRAZOLE 40 MG TABLET PO SCH (10:25)
[2022-03-03] MEDS: DOCUSATE SODIUM 100 MG CAPSULE PO SCH ×2 (10:25→21:24)
[2022-03-03] MEDS: allopurinoL 100 MG TABLET PO SCH (12:17)
[2022-03-03] MEDS: SODIUM CHLORIDE 0.9% 1,000 ML IV SCH ×2 (12:17→21:24)
[2022-03-03] MEDS: ROSUVASTATIN 10 MG TABLET PO SCH (12:17)
[2022-03-04 04:52] LABS: Basophils % 0.1 % (0.0-0.8); Eosinophils # 0.1 10*3/uL (0.0-0.87); Eosinophils % 0.7 % (0.00-10.9); Hematocrit 38.2 VOL% (42.0-52.0); Hemoglobin 12.4 GM/DL (14.0-18.0); Immature Granulocytes % 0.4 %; Immature Granulocytes Absolute 0.03 #; Lymphocytes # 1.4 10*3/uL (1.4-4.0); Lymphocytes % 16.7 % (21.2-54.2); Mean Corpuscular HGB Conc 32.5 GM/DL (32-36); Mean Corpuscular Volume 96.7 FL (87-102); Mean Platelet Volume 10.2 FL (9.6-12.0); Monocytes % 11.7 % (1.7-12.7); Neutrophils % 70.4 % (38.7-73.9); Platelet Count 172 T/CUMM (130-400); Red Blood Count 3.95 MC/CUMM (3.8-5.5); Red Cell Distribution Width 14.4 % (9.3-17.3); White Blood Count 8.1 T/CUMM (4-12)
[2022-03-04] MEDS: SODIUM CHLORIDE 0.9% 1,000 ML IV SCH ×3 (05:24→20:54)
[2022-03-04] MEDS: METOPROLOL SUCCINATE XL 25 MG TABLET PO SCH (09:13)
[2022-03-04] MEDS: DOCUSATE SODIUM 100 MG CAPSULE PO SCH ×2 (09:13→20:54)
[2022-03-04] MEDS: PANTOPRAZOLE 40 MG TABLET PO SCH (09:13)
[2022-03-04] MEDS: cefTRIAXone 1,000 MG in SODIUM CHLORIDE 0.9% 100 ML IV SCH (09:13)
[2022-03-04] MEDS: EZETIMIBE 10 MG TABLET PO SCH (09:13)
[2022-03-04] MEDS: ISOSORBIDE MONONITRATE 60 MG TABLET PO SCH (09:13)
[2022-03-04] MEDS ORDERED: MAGNESIUM SULF RIDER 2 GM/50 ML PREMIX IV ONE (15:30)
[2022-03-05] MEDS: SODIUM CHLORIDE 0.9% 1,000 ML IV SCH (03:14)
[2022-03-05 07:09] LABS: Eosinophils # 0.2 10*3/uL (0.0-0.87); Eosinophils % 2.4 % (0.00-10.9); Hematocrit 33.9 VOL% (42.0-52.0); Hemoglobin 11.3 GM/DL (14.0-18.0); Immature Granulocytes % 0.5 %; Immature Granulocytes Absolute 0.05 #; Lymphocytes # 1.3 10*3/uL (1.4-4.0); Lymphocytes % 14.6 % (21.2-54.2); Mean Corpuscular HGB Conc 33.3 GM/DL (32-36); Mean Corpuscular Volume 95.2 FL (87-102); Mean Platelet Volume 9.7 FL (9.6-12.0); Monocytes % 11.1 % (1.7-12.7); Neutrophils % 71.4 % (38.7-73.9); Platelet Count 149 T/CUMM (130-400); Red Blood Count 3.56 MC/CUMM (3.8-5.5); Red Cell Distribution Width 14.6 % (9.3-17.3); White Blood Count 9.2 T/CUMM (4-12)
[2022-03-05] MEDS: EZETIMIBE 10 MG TABLET PO SCH (08:59)
[2022-03-05] MEDS: ISOSORBIDE MONONITRATE 60 MG TABLET PO SCH (08:59)
[2022-03-05] MEDS: METOPROLOL SUCCINATE XL 25 MG TABLET PO SCH (08:59)
[2022-03-05] MEDS: DOCUSATE SODIUM 100 MG CAPSULE PO SCH (08:59)
[2022-03-05] MEDS: PANTOPRAZOLE 40 MG TABLET PO SCH (08:59)
[2022-03-05] MEDS: cefTRIAXone 1,000 MG in SODIUM CHLORIDE 0.9% 100 ML IV SCH (08:59)
[2022-03-05] MEDS ORDERED: RANOLAZINE 500 MG TABLET PO SCH (09:00)
[2022-03-05] MEDS ORDERED: ASPIRIN EC 81 MG TABLET PO SCH (09:00)
[2022-03-05] MEDS: ROSUVASTATIN 10 MG TABLET PO SCH (10:45)
[2022-03-05] MEDS: allopurinoL 100 MG TABLET PO SCH (10:46)
[2022-03-05 11:26] VITALS: BP 136/87
== END 2022-03-05 12:09 | disposition home or self-care (01) | DRG 700 ==
LOC: N.ED 07:17 → N.EDINP 08:53 → N.3E 09:23
PROVIDERS: ADMIT Family Medicine; ATTEND Family Medicine

== ENCOUNTER 2022-08-09 10:31 | Observation (INO) ==
[2022-08-09] MEDS ORDERED: DOCUSATE SODIUM 100 MG CAPSULE PO PRN (10:51)
[2022-08-09] MEDS ORDERED: ONDANSETRON 4 MG/2 ML VIAL IV PRN (10:51)
[2022-08-09] MEDS ORDERED: ACETAMINOPHEN 325 MG TABLET PO PRN (10:51)
[2022-08-09] MEDS ORDERED: GLUCAGON 1 MG VIAL IM PRN (10:51)
[2022-08-09] MEDS ORDERED: LORATADINE 10 MG TABLET PO PRN (11:14)
[2022-08-09] MEDS ORDERED: DEXTROSE 10% 250 ML BAG IV PRN (11:59)
[2022-08-09] MEDS ORDERED: NITROGLYCERIN SL 0.4 MG TABLET SL PRN (12:58)
[2022-08-09 13:00] LABS: Basophils % 0.6 % (0.0-0.8); Eosinophils # 0.1 10*3/uL (0.0-0.87); Eosinophils % 0.8 % (0.00-10.9); Hematocrit 42.7 VOL% (42.0-52.0); Immature Granulocytes % 0.3 %; Immature Granulocytes Absolute 0.02 #; Lymphocytes # 1.3 10*3/uL (1.4-4.0); Lymphocytes % 17.6 % (21.2-54.2); Mean Corpuscular HGB Conc 32.8 GM/DL (32-36); Mean Corpuscular Volume 93.6 FL (87-102); Mean Platelet Volume 9.6 FL (9.6-12.0); Monocytes % 14.6 % (1.7-12.7); Neutrophils % 66.1 % (38.7-73.9); Platelet Count 163 T/CUMM (130-400); Red Blood Count 4.56 MC/CUMM (3.8-5.5); Red Cell Distribution Width 14.5 % (9.3-17.3); White Blood Count 7.1 T/CUMM (4-12)
[2022-08-09] MEDS ORDERED: RANOLAZINE 500 MG TABLET PO SCH (13:00)
[2022-08-09] MEDS ORDERED: ROSUVASTATIN 10 MG TABLET PO SCH (13:00)
[2022-08-09 13:16] LABS: Albumin 3.6 G/DL (3.4-5.0); Bilirubin,Total 0.7 MG/DL (0.20-1.00); Osmolality,Calculated 280.4 MOS/KG (273-304); Potassium 4.5 MMOL/L (3.5-5.1)
[2022-08-09] MEDS: SODIUM CHLORIDE 0.9% 1,000 ML IV SCH (13:25)
[2022-08-09] MEDS: INSULIN LISPRO 100 UNIT/ML SUBCUT SCH ×3 (13:25→21:43)
[2022-08-09] MEDS ORDERED: BENZONATATE 100 MG CAPSULE PO PRN (13:28)
[2022-08-09] MEDS ORDERED: FUROSEMIDE 40 MG/4 ML VIAL IV ONE (14:20)
[2022-08-09] MEDS ORDERED: POTASSIUM CHLORIDE 20 MEQ TABLET PO ONE (14:21)
[2022-08-09] MEDS: ENOXAPARIN 40 MG/0.4 ML SYRINGE SUBCUT SCH (14:44)
[2022-08-09] MEDS: ASPIRIN EC 81 MG TABLET PO SCH (14:44)
[2022-08-09] MEDS: ASCORBIC ACID 500 MG TABLET PO SCH (21:43)
[2022-08-10 05:17] LABS: Basophils % 0.4 % (0.0-0.8); Eosinophils # 0.2 10*3/uL (0.0-0.87); Eosinophils % 2.9 % (0.00-10.9); Hematocrit 42.5 VOL% (42.0-52.0); Hemoglobin 14.4 GM/DL (14.0-18.0); Immature Granulocytes % 0.3 %; Immature Granulocytes Absolute 0.02 #; Lymphocytes # 1.4 10*3/uL (1.4-4.0); Mean Corpuscular HGB Conc 33.9 GM/DL (32-36); Mean Corpuscular Volume 92.6 FL (87-102); Mean Platelet Volume 9.5 FL (9.6-12.0); Monocytes # 1.3 10*3/uL (0.11-0.8); Monocytes % 17.9 % (1.7-12.7); Neutrophils % 59.5 % (38.7-73.9); Platelet Count 142 T/CUMM (130-400); Red Blood Count 4.59 MC/CUMM (3.8-5.5); Red Cell Distribution Width 14.5 % (9.3-17.3); White Blood Count 7.3 T/CUMM (4-12)
[2022-08-10 05:44] LABS: Eosinophils 2 % (0-10); Lymphocytes 28 % (20-55); Platelet Estimate Adequate; Total Cells Counted 100
[2022-08-10 05:51] LABS: Calcium 8.6 MG/DL (8.5-10.1); Osmolality,Calculated 275.8 MOS/KG (273-304); Potassium 4.4 MMOL/L (3.5-5.1)
[2022-08-10] MEDS ORDERED: MAGNESIUM SULF RIDER 4 GM/100 ML PREMIX IV PRN (06:27)
[2022-08-10] MEDS ORDERED: MAGNESIUM SULF RIDER 2 GM/50 ML PREMIX IV PRN (06:27)
[2022-08-10] MEDS: ACETAMINOPHEN 500 MG TABLET PO PRN (06:49)
[2022-08-10] MEDS: INSULIN LISPRO 100 UNIT/ML SUBCUT SCH ×4 (07:40→23:18)
[2022-08-10] MEDS: CHOLECALCIFEROL 1,000 UNIT TABLET PO SCH (08:25)
[2022-08-10] MEDS: ASCORBIC ACID 500 MG TABLET PO SCH ×2 (08:33→23:14)
[2022-08-10] MEDS: PANTOPRAZOLE 40 MG TABLET PO SCH (08:34)
[2022-08-10] MEDS: METOPROLOL SUCCINATE XL 25 MG TABLET PO SCH (08:34)
[2022-08-10] MEDS: ISOSORBIDE MONONITRATE 60 MG TABLET PO SCH (08:34)
[2022-08-10] MEDS: ASPIRIN EC 81 MG TABLET PO SCH (08:34)
[2022-08-10] MEDS: EZETIMIBE 10 MG TABLET PO SCH (08:34)
[2022-08-10] MEDS: SODIUM CHLORIDE 0.9% 1,000 ML IV SCH (08:38)
[2022-08-10] MEDS ORDERED: FAMOTIDINE 20 MG TABLET PO SCH (09:00)
[2022-08-10] MEDS: ENOXAPARIN 40 MG/0.4 ML SYRINGE SUBCUT SCH (15:27)
[2022-08-10] MEDS: FAMOTIDINE 20 MG TABLET PO SCH (23:14)
[2022-08-11] MEDS: SODIUM CHLORIDE 0.9% 1,000 ML IV SCH (06:19)
[2022-08-11 07:11] LABS: Basophils % 0.3 % (0.0-0.8); Eosinophils # 0.2 10*3/uL (0.0-0.87); Hemoglobin 15.2 GM/DL (14.0-18.0); Immature Granulocytes % 0.4 %; Immature Granulocytes Absolute 0.03 #; Lymphocytes # 1.8 10*3/uL (1.4-4.0); Lymphocytes % 23.9 % (21.2-54.2); Mean Corpuscular Volume 93.1 FL (87-102); Mean Platelet Volume 9.7 FL (9.6-12.0); Monocytes # 1.1 10*3/uL (0.11-0.8); Neutrophils % 58.4 % (38.7-73.9); Platelet Count 193 T/CUMM (130-400); Red Blood Count 4.94 MC/CUMM (3.8-5.5); Red Cell Distribution Width 14.4 % (9.3-17.3); White Blood Count 7.6 T/CUMM (4-12)
[2022-08-11 07:29] LABS: Calcium 8.8 MG/DL (8.5-10.1); Osmolality,Calculated 282.5 MOS/KG (273-304); Potassium 4.5 MMOL/L (3.5-5.1)
[2022-08-11] MEDS: INSULIN LISPRO 100 UNIT/ML SUBCUT SCH ×2 (07:30→12:07)
[2022-08-11] MEDS: EZETIMIBE 10 MG TABLET PO SCH (08:08)
[2022-08-11] MEDS: ISOSORBIDE MONONITRATE 60 MG TABLET PO SCH (08:09)
[2022-08-11] MEDS: ASCORBIC ACID 500 MG TABLET PO SCH (08:09)
[2022-08-11] MEDS: FAMOTIDINE 20 MG TABLET PO SCH (08:10)
[2022-08-11] MEDS: METOPROLOL SUCCINATE XL 25 MG TABLET PO SCH (08:10)
[2022-08-11] MEDS: CHOLECALCIFEROL 1,000 UNIT TABLET PO SCH (08:10)
[2022-08-11] MEDS: ASPIRIN EC 81 MG TABLET PO SCH (08:11)
[2022-08-11] MEDS: PANTOPRAZOLE 40 MG TABLET PO SCH (08:11)
[2022-08-11] MEDS: ACETAMINOPHEN 500 MG TABLET PO PRN (08:13)
[2022-08-11 08:33] VITALS: BP 118/64
== END 2022-08-11 12:17 | disposition home or self-care (01) ==
LOC: N.2W
PROVIDERS: ADMIT Family Medicine; ATTEND Family Medicine